=== PATIENT | female | born 1995 | race Caucasian/White ===

== ENCOUNTER 2020-08-27 23:13 | Inpatient (IN) ==
[2020-08-27 23:58] LABS: Basophils # 0.1 K/mcL (0.0-0.2); Basophils % 0.4 %; Eosinophils # 0.6 K/mcL (0.0-0.6); Eosinophils % 4.9 %; Hemoglobin 14.4 g/dL (11.5-15.4); Immature Granulocytes % 0.5 % (0-4); Lymphocytes # 3.6 K/mcL (0.6-4.6); Lymphocytes % 29.6 %; Mean Corpuscular HGB Conc 32.7 g/dL (31.6-35.5); Mean Corpuscular Hemoglobin 29.7 pg (28.0-33.3); Mean Corpuscular Volume 90.7 fL (83.0-100.0); Mean Platelet Volume 8.8 fL (9.4-12.4); Monocytes % 7.9 %; Neutrophils # 6.8 K/mcL (1.6-8.9); Platelet Count 365 K/mcL (140-400); Red Blood Count 4.85 M/mcL (3.82-4.97); Red Cell Distribution Width 12.3 % (11.5-14.5); Segmented Neutrophils % 56.7 %
[2020-08-28 00:02] LABS: Bilirubin,Urine Negative (Negative); Blood,Urine Trace (Negative); Clarity,Urine Clear (Clear); Color,Urine Light-Yellow (Yellow); Glucose,Urine (UA) Normal (Normal); Ketones,Urine Negative (Negative); Leukocyte Esterase,Urine Negative (Negative); Mucus,Urine Few per lpf (None-Few); Nitrite,Urine Negative (Negative); Protein,Urine Negative (Neg-Trace); RBC,Urine 0-3 per hpf (0-3); Specific Gravity,Urine 1.018 (1.010-1.025); Squamous Epithelial Cell,Urine Few per hpf (None-Few); Urobilinogen,Urine Normal (Normal)
[2020-08-28 00:07] LABS: Amphetamine Screen,Urine Negative ng/mL (Cutoff=1000); Barbiturate Screen,Urine Negative ng/mL (Cutoff=200); Benzodiazepines Screen,Urine Negative ng/mL (Cutoff=200); Cannabinoid Screen,Urine Negative ng/mL (Cutoff = 50); Cocaine Screen,Urine Negative ng/mL (Cutoff= 300); Opiate Screen,Urine Negative ng/mL (Cutoff=300); Phencyclidine Screen,Urine Negative ng/mL (Cutoff=25)
[2020-08-28 00:40] LABS: Acetaminophen < 10 mcg/mL (10-20); Alanine Aminotransferase 15 Units/L (7-52); Albumin 4.4 g/dL (3.5-5.7); Albumin/Globulin Ratio 1.5 (1.1-2.2); Alkaline Phosphatase 70 Units/L (34-104); Aspartate Amino Transferase 13 Units/L (13-39); BUN/Creatinine Ratio 21 (6-26); Bilirubin,Total 0.2 mg/dL (0.3-1.0); Blood Urea Nitrogen 13 mg/dL (6-20); Calcium 8.9 mg/dL (8.6-10.3); Carbon Dioxide 20 mEq/L (23-29); Chloride 109 mEq/L (98-107); Glucose 86 mg/dL (70-105); Osmolality,Calculated 285 (280-300); Potassium 3.9 mEq/L (3.5-5.1); Salicylate < 2.5 mg/dL (15.0-30.0); Sodium 138 mEq/L (136-145); Thyroid Stimulating Hormone 5.243 mcIU/mL (0.340-5.600); Total Protein 7.4 g/dL (6.4-8.9); eGFR For African Americans > 60 (> 60); eGFR For Non-African Americans > 60 (> 60)
[2020-08-28 00:42] LABS: Ethanol < 10 mg/dL (Less than 10)
[2020-08-28 01:06] LABS: Estimated Average Glucose 108 mg/dl; Hemoglobin A1C 5.4 %
[2020-08-28] MEDS ORDERED: *HR* LORazepam 2 MG/ML VIAL IM PRN (02:15)
[2020-08-28] MEDS ORDERED: traZODone 50 MG TABLET PO PRN (02:15)
[2020-08-28] MEDS ORDERED: Haloperidol Lactate 5 MG/ML VIAL IM PRN (02:15)
[2020-08-28] MEDS ORDERED: haloperidoL 5 MG TABLET PO PRN (02:15)
[2020-08-28] MEDS ORDERED: Mag Hydrox/Al Hydrox/Simeth 30 ML UDC PO PRN (02:15)
[2020-08-28] MEDS ORDERED: *HR* LORazepam 1 MG TABLET PO PRN (02:15)
[2020-08-28] MEDS ORDERED: Acetaminophen 325 MG TABLET PO PRN (02:15)
[2020-08-28] MEDS ORDERED: MOM Conc 10 ML UD.LIQ PO PRN (02:15)
[2020-08-28 02:50] LABS: Influenza A PCR Negative (Negative); Influenza B PCR Negative (Negative); Resp. Syncytial Virus PCR Negative (Negative)
[2020-08-28 02:51] LABS: SARS-CoV-2 by PCR (In House) Negative (Negative)
[2020-08-28] MEDS: risperiDONE 1 MG TABLET PO SCH ×2 (08:44→21:06)
[2020-08-28] MEDS: Loratadine 10 MG TABLET PO SCH (11:22)
[2020-08-28] MEDS: Fluticasone Propionate Nasal 50 MCG/SPRAY BOTTLE NS SCH (11:23)
[2020-08-28] MEDS: hydrOXYzine pamoate 25 MG CAPSULE PO PRN ×2 (11:23→21:07)
[2020-08-29] MEDS: risperiDONE 1 MG TABLET PO SCH (08:59)
[2020-08-29] MEDS: Loratadine 10 MG TABLET PO SCH (08:59)
[2020-08-29] MEDS: Fluticasone Propionate Nasal 50 MCG/SPRAY BOTTLE NS SCH (09:00)
[2020-08-29 09:28] VITALS: BP 116/83
== END 2020-08-29 12:00 | disposition home or self-care (01) | DRG 885 ==
LOC: EMEROOARM 23:13 → 1ANU 08-28 02:11
PROVIDERS: ADMIT Psychiatry & Neurology Psychiatry; ATTEND Psychiatry & Neurology Psychiatry

== ENCOUNTER 2021-05-22 03:58 | Inpatient (IN) ==
[2021-05-22 05:15] LABS: Bacteria,Urine Few per hpf (None-Few); Bilirubin,Urine Negative (Negative); Blood,Urine Negative (Negative); Clarity,Urine Clear (Clear); Color,Urine Yellow (Yellow); Glucose,Urine (UA) Normal (Normal); Ketones,Urine Negative (Negative); Leukocyte Esterase,Urine Small (Negative); Mucus,Urine Few per lpf (None-Few); Nitrite,Urine Negative (Negative); PH,Urine 6.5 pH Units (5.0-8.0); Protein,Urine 30 mg/dL (Neg-Trace); Specific Gravity,Urine > 1.030 (1.010-1.025); Squamous Epithelial Cell,Urine Moderate per hpf (None-Few)
[2021-05-22 05:16] LABS: Basophils # 0.1 K/mcL (0.0-0.2); Basophils % 0.4 %; Eosinophils # 0.4 K/mcL (0.0-0.6); Eosinophils % 3.4 %; Hematocrit 43.8 % (35.3-44.9); Hemoglobin 14.4 g/dL (11.5-15.4); Immature Granulocytes % 0.7 % (0-4); Lymphocytes # 3.1 K/mcL (0.6-4.6); Lymphocytes % 25.7 %; Mean Corpuscular HGB Conc 32.9 g/dL (31.6-35.5); Mean Corpuscular Volume 91.3 fL (83.0-100.0); Monocytes # 0.9 K/mcL (0.0-1.3); Monocytes % 7.2 %; Neutrophils # 7.6 K/mcL (1.6-8.9); Platelet Count 367 K/mcL (140-400); Red Cell Distribution Width 13.3 % (11.5-14.5); Segmented Neutrophils % 62.6 %; White Blood Count 12.1 K/mcL (4.3-11.1)
[2021-05-22 05:16] LABS: Amphetamine Screen,Urine Negative ng/mL (Cutoff=1000); Barbiturate Screen,Urine Negative ng/mL (Cutoff=200); Benzodiazepines Screen,Urine Negative ng/mL (Cutoff=200); Cannabinoid Screen,Urine Negative ng/mL (Cutoff = 50); Cocaine Screen,Urine Negative ng/mL (Cutoff= 300); Opiate Screen,Urine Negative ng/mL (Cutoff=300); Phencyclidine Screen,Urine Negative ng/mL (Cutoff=25)
[2021-05-22 05:26] LABS: Acetaminophen < 10 mcg/mL (10-20); Albumin 4.1 g/dL (3.5-5.7); Albumin/Globulin Ratio 1.4 (1.1-2.2); BUN/Creatinine Ratio 15 (6-26); Bilirubin,Direct 0.1 mg/dL (0.0-0.2); Bilirubin,Indirect 0.1 mg/dL (0.0-1.0); Bilirubin,Total 0.2 mg/dL (0.3-1.0); Blood Urea Nitrogen 10 mg/dL (6-20); Calcium 8.7 mg/dL (8.6-10.3); Carbon Dioxide 21 mEq/L (23-29); Chloride 110 mEq/L (98-107); Ethanol < 10 mg/dL (Less than 10); Globulin 2.9 g/dL (2.4-3.5); Glucose 99 mg/dL (70-105); Osmolality,Calculated 287 (280-300); Potassium 3.7 mEq/L (3.5-5.1); Salicylate < 2.5 mg/dL (15.0-30.0); Sodium 139 mEq/L (136-145); eGFR For African Americans > 60 (> 60); eGFR For Non-African Americans > 60 (> 60)
[2021-05-22] MEDS ORDERED: Mag Hydrox/Al Hydrox/Simeth 30 ML UDC PO PRN (12:16)
[2021-05-22] MEDS ORDERED: *HR* LORazepam 2 MG/ML VIAL IM PRN (12:16)
[2021-05-22] MEDS ORDERED: Haloperidol Lactate 5 MG/ML VIAL IM PRN (12:16)
[2021-05-22] MEDS ORDERED: *HR* LORazepam 1 MG TABLET PO PRN (12:16)
[2021-05-22] MEDS ORDERED: haloperidoL 5 MG TABLET PO PRN (12:16)
[2021-05-22] MEDS ORDERED: traZODone 50 MG TABLET PO PRN (12:16)
[2021-05-22] MEDS ORDERED: MOM Conc 10 ML UD.LIQ PO PRN (12:16)
[2021-05-22] MEDS: clonazePAM 0.5 MG TABLET PO PRN (12:53)
[2021-05-22] MEDS: Fluticasone Propionate Nasal 50 MCG/SPRAY BOTTLE NS SCH (16:19)
[2021-05-22] MEDS: Ibuprofen 400 MG TABLET PO PRN (18:41)
[2021-05-22] MEDS: hydrOXYzine pamoate 25 MG CAPSULE PO PRN (20:42)
[2021-05-22] MEDS: risperiDONE 1 MG TABLET PO SCH (20:42)
[2021-05-23] MEDS: Loratadine 10 MG TABLET PO SCH (08:31)
[2021-05-23] MEDS: risperiDONE 1 MG TABLET PO SCH ×2 (08:31→20:14)
[2021-05-23] MEDS: Fluticasone Propionate Nasal 50 MCG/SPRAY BOTTLE NS SCH (09:26)
[2021-05-23] MEDS: clonazePAM 0.5 MG TABLET PO PRN (13:07)
[2021-05-23] MEDS: Ibuprofen 400 MG TABLET PO PRN (17:07)
[2021-05-23] MEDS: hydrOXYzine pamoate 25 MG CAPSULE PO PRN (20:14)
[2021-05-24] MEDS: Fluticasone Propionate Nasal 50 MCG/SPRAY BOTTLE NS SCH (08:02)
[2021-05-24] MEDS: Loratadine 10 MG TABLET PO SCH (08:03)
[2021-05-24] MEDS: risperiDONE 1 MG TABLET PO SCH (08:03)
[2021-05-24 08:39] VITALS: BP 135/80; PULSE 98; TEMP 98.2; O2SAT 98
== END 2021-05-24 14:15 | disposition home or self-care (01) | DRG 918 ==
LOC: EMEROOARM 03:58 → 1ANU 14:29
PROVIDERS: ADMIT Psychiatry & Neurology Psychiatry; ATTEND Psychiatry & Neurology Psychiatry